=== PATIENT | female | born 1945 | race Caucasian/White ===

== ENCOUNTER → 2019-06-25 | Outpatient (CLI) | payer MEDICARE | END | disposition home or self-care (01) | LOC: PCVCCLINIC 14:00 | PROVIDERS: ATTEND Internal Medicine Cardiovascular Disease | DX: I10 Essential (primary) hypertension (principal); R06.09 Other forms of dyspnea; R94.31 Abnormal electrocardiogram [ECG] [EKG]; E78.00 Pure hypercholesterolemia, unspecified; Z88.1 Allergy status to other antibiotic agents; Z88.5 Allergy status to narcotic agent | CPT/HCPCS: 93005; G0463 ==

== ENCOUNTER → 2019-06-29 | Outpatient (CLI) | payer MEDICARE ==
--- NOTE | 2019-06-29 11:53 | PCVCIMAG ---
APPROVED REPORT Study performed: 06/29/2019 11:11:00 EXAM: Comprehensive 2D, Doppler, and color-flow Echocardiogram Patient Location: Echo lab Status: routine BSA: 1.91 HR: 65 bpmBP: 140/80 mmHg Rhythm: NSR Other Information Study Quality: Technically Difficult Risk Factors: Cardiac Risk Factors: HTN, Hyperlipidemia Indications Dyspnea Pre op Clerance thyroid surgery. 2D Dimensions IVSd: 14.93 (7-11mm)LVOT Diam: 20.36 (18-24mm) LVDd: 34.77 mm PWd: 13.46 (7-11mm)Ascending Ao: 31.16 (22-36mm) LVDs: 25.06 (25-40mm) Left Atrium: 33.05 (27-40mm) Aortic Root: 28.93 mm LV Single Plane 4CH: 56.35 % LV Single Plane 2CH: 63.56 % Biplane EF: 60.9 % Volumes Left Atrial Volume (Systole) Single Plane 4CH: 63.67 mLSingle Plane 2CH: 31.10 mL LA ESV Index: 24.00 mL/m2 Aortic Valve AoV Peak Saji.: 1.64 m/s AO Peak Gr.: 10.77 mmHgLVOT Max P.26 mmHg LVOT Max V: 1.25 m/s THERESE Vmax: 2.48 cm2 Mitral Valve E/A Ratio: 1.3 MV Decel. Time: 183.64 ms MV E Max Saji.: 0.76 m/s MV A Saji.: 0.57 m/s IVRT: 103.81 ms TDI E/Lateral E': 10.86E/Medial E': 9.50 Medial E' Saji.: 0.08 m/s Lateral E' Saji.: 0.07 m/s Pulmonary Valve PV Peak Gr.: 2.51 mmHg Pulmonary Vein P Vein S: 0.40 m/sP Vein A: 0.38 m/s P Vein D: 0.42 m/sP Vein A Dur.: 93.4 msec P Vein S/D Ratio: 0.95 Tricuspid Valve TR Peak Saji.: 2.48 m/s TR Peak Gr.: 24.65 mmHg Left Ventricle The left ventricle is normal size. There is normal LV segmental wall motion. There is normal left ventricular wall thickness. Left ventricular systolic function is normal. The left ventricular ejection fraction is within the normal range. LVEF is 55-60%. Right Ventricle The right ventricle is normal size. The right ventricular systolic function is normal. Atria The left atrium size is normal. The right atrium size is normal. Aortic Valve The aortic valve is normal in structure. No aortic regurgitation is present. There is no aortic valvular stenosis. Mitral Valve The mitral valve is normal in structure. There is no mitral valve regurgitation noted. No evidence of mitral valve stenosis. Tricuspid Valve The tricuspid valve is normal in structure. Trace tricuspid regurgitation. Pulmonary artery pressure is 32mmHg. Pulmonic Valve The pulmonary valve is normal in structure. There is no pulmonic valvular regurgitation. Great Vessels The aortic root is normal in size. IVC is normal in size and collapses >50% with inspiration. Pericardium There is no pericardial effusion. <Conclusion> The left ventricle is normal size. There is normal left ventricular wall thickness. Left ventricular systolic function is normal. The right ventricle is normal size. The left atrium size is normal. The aortic valve is normal in structure. There is no mitral valve regurgitation noted. Trace tricuspid regurgitation. Pulmonary artery pressure is 32mmHg.
== END | disposition home or self-care (01) ==
LOC: PCVCIMAG 11:13
PROVIDERS: ATTEND Internal Medicine Cardiovascular Disease
DX: Z01.810 Encounter for preprocedural cardiovascular examination (principal); R06.09 Other forms of dyspnea; R94.31 Abnormal electrocardiogram [ECG] [EKG]; E78.00 Pure hypercholesterolemia, unspecified; I10 Essential (primary) hypertension; J44.9 Chronic obstructive pulmonary disease, unspecified; E78.5 Hyperlipidemia, unspecified; M85.80 Other specified disorders of bone density and structure, unspecified site; Z87.891 Personal history of nicotine dependence; Z88.8 Allergy status to other drugs, medicaments and biological substances; Z88.0 Allergy status to penicillin; Z79.899 Other long term (current) drug therapy; Z72.89 Other problems related to lifestyle
CPT/HCPCS: 93306; G0463